=== PATIENT | female | born 1995 | race Caucasian/White ===

== ENCOUNTER 2018-06-08 18:11 | Emergency (ER) | payer OTHER ==
--- NOTE | 2018-06-08 18:19 | Emergency Department Record ---
History of Present Illness - General Chief complaint: Head Injury Stated complaint: FELL OFF A HORSE/HEAD INJURY Time Seen by Provider: 06/08/18 18:15 Source: Patient, Family Mode of Arrival: Ambulatory Limitations: No limitations Travel/Exposure to [facility] [place] Within 21 Days of Symptoms: No - History of Present Illness Initial comments: 23 yo female presents after a fall off a horse. She was riding and fell off. She did not have any LOC but repeated self for a brief time. No current headache, nausea or confusion. The repeating herself has passed. No extremity pain. No weakness, numbness or tingling. No chest, back or abdominal pain. NO current medications. MD Complaint: Head injury, Fall -: Hour(s) (1) Arrival Conditions: C-spine immobilization present Mechanism of Injury: Mechanical fall Loss of Consciousness: No Previous Trauma to this Area: No Place: Outdoors Radiation: Neck Severity: Moderate Quality: Aching Consistency: Constant Provoking factors: Other Other Injuries: None Associated Symptoms: Denies other symptoms - Related Data Home Medications Medication Instructions Recorded Confirmed Last Taken No Home Med [NO HOME MEDS] 06/08/18 06/08/18 Unknown Allergies/Adverse reactions: Allergies Allergy/AdvReac Type Severity Reaction Status Date / Time No Known Drug Allergies Allergy Verified 06/08/18 18:31 Review of Systems Constitutional: Denies: Chills, Fever, Malaise, Weakness Eyes: Denies: Eye discharge, Eye pain, Photophobia, Vision change ENT: Denies: Congestion Respiratory: Denies: Cough, Dyspnea, Hemoptysis, Stridor, Wheezes Cardiovascular: Denies: Chest pain, Palpitations, Syncope Endocrine: Denies: Fatigue Gastrointestinal: Denies: Abdominal pain, Diarrhea, Nausea, Vomiting Genitourinary: Denies: Abnormal menses, Dysuria, Hematuria, Urgency Musculoskeletal: Reports: As per HPI, Myalgia, Neck pain. Denies: Arthralgia Skin: Denies: Bruising, Change in color, Rash Neurological: Reports: Headache. Denies: Abnormal gait, Confusion, Numbness, Paresthesias, Tingling, Tremors, Vertigo, Weakness Psychiatric: Denies: Anxiety Hematological/Lymphatic: Denies: Blood Clots, Easy bleeding, Easy bruising Physical Exam - General General Appearance: Alert, Oriented x3, Cooperative, No acute distress Limitations: No limitations - Head Head exam: Normocephalic, Normal inspection Head exam detail: negative: Abrasion, Contusion, Hematoma, Laceration - Eye Eye exam: Normal appearance, PERRL. negative: Conjunctival injection, Scleral icterus - ENT ENT exam: Normal exam, Mucous membranes moist, Normal orophraynx, TM's normal bilaterally Ear exam: Normal external inspection Nasal Exam: Normal inspection Mouth exam: Normal external inspection Teeth exam: Normal inspection Throat exam: Normal inspection - Neck Neck exam: Normal inspection, Tenderness. negative: Lymphadenopathy, Meningismus, Thyromegaly - Respiratory Respiratory exam: Normal lung sounds bilaterally. negative: Accessory muscle use, Decreased breath sounds, Prolonged expiratory, Respiratory distress, Rhonchi, Stridor, Wheezes - Cardiovascular Cardiovascular Exam: Regular rate, Normal rhythm, Normal heart sounds Peripheral Pulses: 2+: Radial (R), Radial (L) - GI/Abdominal GI/Abdominal exam: Soft. negative: Guarding, Rigid, Tenderness - Rectal Rectal exam: Deferred - exam: Deferred - Extremities Extremities exam: Normal inspection, Full ROM. negative: Tenderness - Back Back exam: Denies: CVA tenderness (R), CVA tenderness (L) - Neurological Neurological exam: Alert, CN II-XII intact, Normal gait, Oriented X3, Other ( steady walking without assistance). negative: Abnormal gait, Altered, Motor sensory deficit - Psychiatric Psychiatric exam: Normal affect, Normal mood - Skin Skin exam: Dry, Intact, Normal color, Warm Course - Reevaluation(s) Reevaluation #1: No acute process on C spine The HCT was negative for intracranial injury Small likely arachnoid cyst The patient was informed and need to follow up the CT with her PCP non emergent 06/08/18 19:22 06/08/18 19:24 The patient remains baseline. No signs of impairment, confusion or repeating self, or signs of serious injury We discussed the CT. She is aware of her prior cyst but was instructed to follow up either way 06/08/18 21:24 Disposition Disposition: Discharge Clinical Impression: Concussion Disposition: Home, Self-Care Condition: (1) Good Instructions: Concussion (ED) Additional Instructions: Return to the ED if pain, dizziness, nausea, vomiting, severe headache Rest the next few days avoiding over exertion, dehydration You may take Tylenol for mild pain. The CT scan of the brain demonstrated a small cyst likely an arachnoid cyst. Follow this up with your doctor to discuss follow up MRI if needed. Forms: Patient Portal Access Time of Disposition: 20:00 Quality - Quality Measures Quality Measures: N/A, Blunt Head Trauma (>2yr) - Raj Coma Scale Dexter Coma Scale: Dexter Coma Scale Eye Response: (4) Open spontaneously Motor Response: (6) Obeys commands Verbal Response: (5) Oriented Raj Total: 15 - Blunt Head Trauma - Adult Quality Measure: Measure #415: Utilization of CT for Minor Blunt Head Trauma ICD10 Codes Entered: Yes Was CT ordered: Yes Does Patient Have Any of the Following: No Exclusions Patient Presented Within 24 Hours of Injury: Yes Raj Score: [address] for Minor Blunt Head Trauma: CT Done, No Appropriate Indication [G9533] Additional Inclusion Criteria: Within 24hrs (AND) GCS of 15 (AND) CT ordered. [ G9530] Indications For CT: Dangerous Mechanism of Injury - Blood Pressure Screening Does Patient Have Any of the Following: No Blood Pressure Classification: Pre-Hypertensive BP Reading Systolic Measurement: 130 Diastolic Measurement: 88 Screening for High Blood Pressure: < Pre-Hypertensive BP, F/U Documented > [ G8950] Pre-Hypertensive Follow-up Interventions: Referral to alternative/primary care provider.
[2018-06-08] MEDS ORDERED: ACETAMINOPHEN 500 MG TABLET PO ONE (19:18)
--- NOTE | 2018-06-10 06:44 | CT SCAN REPORT ---
DATE: 06/08/2018. EXAM: CT OF THE HEAD WITHOUT CONTRAST. HISTORY: RIGHT-SIDED HEADACHE AND DIZZINESS AFTER A FALL FROM A HORSE ONE HOUR PRIOR. TECHNIQUE: Routine noncontrast CT images of the head were obtained. COMPARISON: None. FINDINGS: The ventricles, basal cisterns, and sulci are of normal size, shape, and configuration. No midline shift or mass effect. Great white differentiation is well maintained throughout both cerebral hemispheres without evidence for acute ischemia. No intracranial hemorrhage. There is a 2.3 x 1.5 cm fluid attenuation focus within the anterior aspect of the right middle cranial fossa; a typical location in appearance for an arachnoid cyst. Though this could be further assessed with nonemergent MR. Orbital contents are unremarkable. The paranasal sinuses and mastoid air cells are clear. IMPRESSION: 1. NO ACUTE INTRACRANIAL ABNORMALITY. 2. PROBABLE ARACHNOID CYST WITHIN THE ANTERIOR RIGHT TEMPORAL REGION/MIDDLE CRANIAL FOSSA. THIS COULD BE FURTHER ASSESSED WITH NONEMERGENT PRE- AND POSTCONTRAST MR OF THE BRAIN. JOB NUMBER: [id number] MTDD
--- NOTE | 2018-06-10 06:47 | CT SCAN REPORT ---
DATE: 06/08/2018. EXAM: CT OF THE CERVICAL SPINE WITHOUT CONTRAST. HISTORY: FALL FROM HORSE. RIGHT-SIDED PAIN. TECHNIQUE: Routine noncontrast CT images of the cervical spine were obtained. FINDINGS: No fracture, subluxation, or significant loss of vertebral body height. The vertebral disc spaces are maintained without significant degenerative change. Paraspinous soft tissues are unremarkable. IMPRESSION: NO ACUTE CERVICAL SPINE ABNORMALITY. JOB NUMBER: [id number] MTDD
== END 2018-06-08 19:44 | disposition home or self-care (01) ==
LOC: ER 18:11
DX: S06.0X0A Concussion without loss of consciousness, initial encounter (principal); R51 Headache; M54.2 Cervicalgia; R42 Dizziness and giddiness; V80.010A Animal-rider injured by fall from or being thrown from horse in noncollision accident, initial encounter; Y92.89 Other specified places as the place of occurrence of the external cause
CPT/HCPCS: 70450; 72125; 99283; 99284